=== PATIENT | male | born 1955 | race Caucasian/White ===

== ENCOUNTER 2020-11-20 12:21 | Emergency (ER) | payer MEDICARE ==
[~2020-11-20] VITALS: Ht 180.3 cm; Wt 113.6 kg
[~2020-11-20 12:21] MED LIST: AFRIN NASAL SPR15 M1 NS; HCTZ12.5TAB; NORCO 325 MG-51 TAB PO; PREDNISONE20 MG PO; STOOL SOFTENER100 M2 PO; ZYRTEC 10MG10 MG
[2020-11-20 13:25] LABS: BASO # 0.1 (0.0-0.2); BASO % 0.4 % (0.0-2.0); EOS # 1.1 (0.0-0.7); EOS % 10.1 % (0-4.0); GRAN # 7.3 (1.4-6.5); HEMATOCRIT 44.6 % (42.0-52.0); HEMOGLOBIN 15.2 g/dl (13.5-18.0); LYMPH # 1.9 (1.2-3.4); LYMPH % 16.9 % (20.0-51.0); MEAN CELL VOLUME 89 fl (80.0-100.0); MEAN CORPUSCULAR HEMOGLOBIN 30 pg (27.0-31.0); MEAN CORPUSCULAR HGB CONC 34 g/dl (33.0-37.0); MEAN PLATELET VOLUME 11.2 fl (7.4-10.4); MONO # 0.8 (0.1-0.6); MONO % 7.3 % (1.7-9.3); PLATELET COUNT 151 K/mm3 (130-400); REDCELL DISTRIBUTION WIDTH-CV 13.4 % (11.5-14.5)
[2020-11-20] MEDS ORDERED: PREDNISONE10 MG PO (13:39)
[2020-11-20 13:40] LABS: ALBUMIN 4.7 gm/dL (3.5-5.0); BILIRUBIN,TOTAL 1.3 mg/dL (0.0-1.0); C-REACTIVE PROTEIN 5.3 mg/dL (0.0-0.9); CALCIUM 10.2 mg/dL (8.4-10.2); CREATININE, serum 0.86 (0.66-1.25); POTASSIUM 3.4 mmol/L (3.4-5.0); TOTAL PROTEIN 8.3 gm/dL (6.4-8.2)
[2020-11-20 14:20] VITALS: BP 143/83; PULSE 89; TEMP 98.6
== END 2020-11-20 14:21 | disposition home or self-care (01) ==
LOC: COL.ER 12:21
PROVIDERS: Family Medicine
DX: L50.0 Allergic urticaria (principal); I10 Essential (primary) hypertension; Z85.828 Personal history of other malignant neoplasm of skin; Z85.22 Personal history of malignant neoplasm of nasal cavities, middle ear, and accessory sinuses; Z87.891 Personal history of nicotine dependence; Z88.1 Allergy status to other antibiotic agents; Z88.2 Allergy status to sulfonamides
CPT/HCPCS: J7512